=== PATIENT | female | born 1930 | race Caucasian/White ===

== ENCOUNTER 2016-08-15 04:31 | Inpatient (IN) | payer MEDICARE, OTHER ==
[2016-08-09 14:47] LABS: BASOPHILS 0.4 %; BASOPHILS ABSOLUTE 0.03 10/3/uL (0.0-0.16); EOSINOPHILS 2.7 %; EOSINOPHILS ABSOLUTE 0.22 10/3/uL (0.0-0.53); HEMATOCRIT 39.1 % (36.0-48.0); HEMOGLOBIN 12.3 g/dL (12.0-16.0); IMMATURE GRANULOCYTES 0.1 %; IMMATURE GRANULOCYTES ABSOLUTE 0.01 10/3/uL (0.0-0.11); LYMPHOCYTES 26.2 %; LYMPHOCYTES ABSOLUTE 2.12 10/3/uL (0.67-4.30); MANUAL DIFF NO %; MEAN CORPUS HGB CONC 31.5 g/dL (32.0-36.0); MEAN CORPUSCULAR HEMOGLOB 26.8 pg (26.0-34.0); MEAN CORPUSCULAR VOLUME 85.2 fL (80-100); MEAN PLATELET VOLUME 9.2 fL (9.2-13.0); MONOCYTES 6.3 %; MONOCYTES ABSOLUTE 0.51 10/3/uL (0.21-1.20); NEUTROPHILS 64.3 %; NEUTROPHILS ABSOLUTE 5.19 10/3/uL (2.02-8.40); PLATELET COUNT 368 10/3/uL (150-400); RBC DISTRIBUTION WIDTH 14.7 % (12.0-16.0); RED CELL COUNT 4.59 10/6/uL (4.0-5.6); WHITE BLOOD CELLS 8.1 10/3/uL (4.5-10.5)
[2016-08-09 14:54] LABS: INTERNATIONAL NORMAL RATI 1.1 UNITS (-); PROTIME (NOT ORD) 13.7 SEC (12.0-14.5)
[2016-08-09 15:03] LABS: A/G RATIO 1.1 (0.7-1.9); ALBUMIN 3.7 G/DL (3.5-5.0); ALKALINE PHOSPHATASE 90 U/L (45-117); CALCIUM, SERUM 8.6 MG/DL (8.5-10.4); CHLORIDE, SERUM 100 MMOL/L (96-112); CO2 (CARBON DIOXIDE) 35 MMOL/L (24-34); CREATININE 0.79 MG/DL (0.55-1.02); GFR AFRICAN AMERICAN 79 ML/MIN (>=60); GFR NON AFRICAN AMERICAN 68 ML/MIN (>=60); GLOBULIN 3.4 G/DL (2.5-4.1); GLUCOSE, SERUM 94 MG/DL (60-99); POTASSIUM, SERUM 4.2 MMOL/L (3.5-5.3); SGOT(AST) 16 U/L (5-40); SGPT(ALT) 16 U/L (5-65); SODIUM, SERUM 142 MMOL/L (135-148); TOTAL BILIRUBIN 0.4 MG/DL (0-1.2); TOTAL PROTEIN 7.1 G/DL (6.0-8.5)
[2016-08-09 15:04] LABS: BUN (BLOOD UREA NITROGEN) 15 MG/DL (6-23)
[2016-08-09 15:49] LABS: ASCORBIC ACID (UR NOT ORDER) NEG (NEG); BILIRUBIN, URINE NEGATIVE (NEG); KETONE, URINE NEGATIVE (NEG); LEUKOCYTE ESTERASE(NOT OR TRACE (NEG); WBC (NOT ORDERED) (RFLEX) 3 (0-5)
--- NOTE | ~2016-08-15 | OP ---
Record Of Operation [facility] [address] [place]. [address] NAME: MICHAEL QUESADA : 32 STATUS : ADM IN PAT#: [id number] AGE: 86 ADM/REG DATE : 08/15/16 MR#: [id number] REPORT SERV DATE: 08/15/16 DICTATED BY: GIOVANNA PHILLIP DATE: 08/15/16 REPORT STATUS : Draft TRANSCRIBED BY: MODL DATE: 08/15/16 DATE OF PROCEDURE: 08/15/2016 PREOPERATIVE DIAGNOSIS: Left cuff failure around resurfacing. POSTOPERATIVE DIAGNOSIS: Left cuff failure around resurfacing. PROCEDURE: 1. Removal of Reinoso resurfacing device. 2. 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 SURGEON: Giovanna Phillip M.D. COMPLICATIONS: None. ANESTHESIA: General endotracheal with regional indwelling interscalene catheter per Anesthesia. ESTIMATED BLOOD LOSS: 50 mL. FLUIDS: Crystalloid. INDICATIONS: This 86-year-old female, who is in severe pain with her left shoulder. She had failed nonoperative management and wished to proceed with operative intervention. PROCEDURE IN DETAIL: The patient was induced in the supine position. She was taken to the beach-chair position with care to maintain the cervical lordosis. A time-out protocol was enforced. Ancef was administered. We used an anterolateral deltopectoral approach. We dissected through the previous scar and found the deltopectoral interval. The scar was dissected, we dissected the subdeltoid plane with Bovie electric cautery and Metzenbaum scissors. We created a pocket for the small brown and placed that via cuff, it was completely scarred and had failed in continuity, it was very thin, the implant was visualized essentially through the translucent cuff. We took down the subscap with a peel technique and the inferior subscap fibers were intact. We then subperiosteally dissected and dislocated the resurfacing. We used a saw, followed by osteotomes to explant the device. There was a bolus of cement proximally, we went around that with osteotomes and were able to get that out without any perforation of the surrounding bone. We then sized and broached up to a 12 and provisionally seated a broach. We then turned our attention to the glenoid. We identified and protected the axillary nerve and released the inferior capsule. We circumferentially released the glenoid soft-tissue, we machined for the 15 mm trabecular metal base plate, and placed inferior and superior locking screws after reaming the surface, these were then placed in locking mode. A 36 mm glenoid sphere was impacted. We then performed trial reduction, so, we selected a +3 poly with a 12 press-fit stem placed in 20 degrees of retroversion. We placed that around fiber Record Of Operation [address] [address] NAME: MICHAEL QUESADA : 32 STATUS : ADM IN PAT#: [id number] AGE: 86 ADM/REG DATE : 08/15/16 MR#: [id number] REPORT SERV DATE: 08/15/16 DICTATED BY: GIOVANNA PHILLIP. DATE: 08/15/16 REPORT STATUS : Draft TRANSCRIBED BY: TANISHA DATE: 08/15/16 wires through the bone and around the stem. After reduction, we repaired the remaining capsule, placed a Hemovac drain, and closed the wound in layers. The patient tolerated the procedure well, she was taken to the PACU in stable condition. POSTOP PLAN: Elbow range of motion, pendulums only, sling for six weeks, reverse shoulder protocol. CHACE/TANISHA Giovanna Phillip M.D. / [id number] CC: Giovanna Phillip M.D.
[~2016-08-15 04:31] MED LIST: 8 HOUR650 MG PO; ADVAIR250 INH; ASAB PO; CELEXA10 PO; CLARIT10 PO; COREG6 PO; COZ50 PO; FLONASE NAS; FLOVENT110 INH; HYDROCHLOROT12.5 MG PO; KEPPRA500 PO; KLOR-CON M2020 MEQ PO; L40 PO; LOP100 PO; MACROBID PO; MIRALAX POWDER1 PKT PO; NORCO1 TA2 PO; NORV5 PO; P10 PO; PROAIR HFA INH; SINGULAIR1 PO; SYN.05 PO; X5 PO; ZANAFLEX 4 MG TA4 MG PO
[2016-08-16 05:00] LABS: HEMATOCRIT 32.9 % (36.0-48.0); HEMOGLOBIN 10.6 g/dL (12.0-16.0)
[2016-08-16 05:11] LABS: BUN (BLOOD UREA NITROGEN) 17 MG/DL (6-23); CALCIUM, SERUM 8.1 MG/DL (8.5-10.4); CHLORIDE, SERUM 100 MMOL/L (96-112); CREATININE 0.78 MG/DL (0.55-1.02); GFR AFRICAN AMERICAN 80 ML/MIN (>=60); GFR NON AFRICAN AMERICAN 69 ML/MIN (>=60); SODIUM, SERUM 138 MMOL/L (135-148)
[2016-08-16 05:12] LABS: CO2 (CARBON DIOXIDE) 30 MMOL/L (24-34); GLUCOSE, SERUM 119 MG/DL (60-99); POTASSIUM, SERUM 3.1 MMOL/L (3.5-5.3)
== END 2016-08-17 15:15 | DRG 483 ==
LOC: SDC/OF 04:31 → PACU 09:05 → 3SO 10:22
PROVIDERS: Orthopaedic Surgery Sports Medicine
PROC: 0RRK00Z Replacement of Left Shoulder Joint with Reverse Ball and Socket Synthetic Substitute, Open Approach (ICD-10-PCS; principal; 2016-08-15 06:15)
DX: T84.098A Other mechanical complication of other internal joint prosthesis, initial encounter (principal); J44.9 Chronic obstructive pulmonary disease, unspecified; I11.0 Hypertensive heart disease with heart failure; I50.32 Chronic diastolic (congestive) heart failure; E03.9 Hypothyroidism, unspecified; F41.9 Anxiety disorder, unspecified
CPT/HCPCS: 36415; 71010; 73030-LT; 80048; 80053; 81001; 84132; 85014; 85018; 85025; 85610; 85730; 86850; 86900; 86901; 87641; 88300; 88304; 88311; 93005; 94640; 97110-GP; 97116-GP; 97162-GP; A9270-GY; C1713; C1776; G8978-CL-GP; G8979-CJ-GP; J0360; J0690; J1200; J2250; J2270; J2405; J2550; J2710; J2795; J3010